=== PATIENT | female | born 1950 | race Caucasian/White ===

== ENCOUNTER 2018-04-25 08:55 | Outpatient (RCR) | payer MEDICARE, OTHER ==
[2016-09-09 13:06] VITALS: Wt 82.2 kg
[2018-04-14 09:21] VITALS: BP 152/77
[2018-04-14 10:31] LABS: PLATELET COUNT, AUTOMATED 286 K/uL (150-450)
--- NOTE | 2018-04-14 16:11 | [facility] ONCOLOGY NOTE ---
EVENT DATE: April 14, 2018 REFERRING PHYSICIAN Baljit Coronel MD and Ailyn Lee, REASON FOR CONSULTATION Evaluation and management of hereditary hemochromatosis. HEMATOLOGY HISTORY Patient is a 68-year-old female who was diagnosed with double heterozygous state for hereditary hemochromatosis. We do not have records of that, but the patient was knowing that, and she is going to bring a copy of her blood work which was done in the past. Patient did not have any phlebotomy for the last three years, and her recent ferritin was 242, and she was having a concern about the phlebotomy session. She is doing fine currently except having allergy with nasal discharge, epistaxis, and cough with expectoration. She has also some asthma. She has occasional constipation, and she has pain in her right shoulder due to bony spur. PAST MEDICAL HISTORY 1. Sleep apnea. 2. Hypertension. 3. Allergies. 4. Hereditary hemochromatosis. 5. GERD. PAST SURGICAL HISTORY 1. ORIF for right elbow fracture in June 2016. 2. Colon perforation surgery with ileostomy and reversal of ileostomy in 2015. 3. Bilateral tubal ligation in 1997. FAMILY HISTORY Possible familial polyposis on the paternal side of her family. SOCIAL HISTORY The patient is with one son. She is a musician, teacher, and commercial loan underwriter. She is a never smoker. She drinks socially. She has like a glass of wine twice per month. No IV use of illicit drugs. CURRENT MEDICATIONS 1. Pantoprazole 40 mg daily. 2. Osphena 60 mg daily. 3. Losartan 50 mg daily. 4. Amlodipine 5 mg daily. 5. Dulera 100 mcg/5 mcg two puffs daily. 6. Multivitamins. 7. Calcium supplement. 8. Metronidazole 60 g gel applied per vagina twice a week. ALLERGIES 1. BACTRIM which causes severe hives. 2. CEFTIN which causes C. diff. 3. PENICILLIN which causes skin allergy. 4. LEVAQUIN which causes hives. REVIEW OF SYSTEMS CONSTITUTIONAL: No appetite or weight change. No fever, chills, or sweating. No recent infection. HEENT: Ears: No tinnitus or hearing problem. Nose: She has nasal discharge and epistaxis due to allergies. Throat: No sore throat or mouth ulcers. Eyes: No diplopia or visual changes. RESPIRATORY: No shortness of breath. She has cough with expectoration from asthma. CARDIOVASCULAR: No chest pain, orthopnea, or paroxysmal nocturnal dyspnea (PND). No edema. No palpitations. GASTROINTESTINAL: No nausea or vomiting. She has occasional constipation. No change in bowel movements. No heartburn or swallowing difficulties. No abdominal pain. No jaundice. No hematemesis, melena, or rectal bleeding. GENITOURINARY: No hematuria or dysuria. MUSCULOSKELETAL: She has right shoulder pain from bone spur. NEUROLOGICAL: No tingling or numbness in the hands or feet. No headaches or convulsions. HEMATOLOGIC/LYMPHATIC: No bleeding or easy bruising. No weakness or fatigue. No enlarged lymph nodes. SKIN: No skin rash or lumps. PSYCHIATRIC: No anxiety or depression. PHYSICAL EXAMINATION GENERAL: Looks stable. Well developed, well nourished, and in no acute distress. VITAL SIGNS: Blood pressure 152/77, pulse 59 per minute, respirations 16 per minute, temperature 98.9, pulse ox 95% on room air. HEENT: Head: Atraumatic. No sinus tenderness to palpation. Eyes: No icterus or conjunctivitis. Mouth and throat: No oral thrush or mucositis. NECK: Supple. No cervical or supraclavicular lymphadenopathy. LUNGS: Clear to auscultation and percussion bilaterally. HEART: Regular rate and rhythm. No gallops, murmurs, clicks, or rubs. ABDOMEN: Soft and lax. No tenderness. No hepatosplenomegaly. No masses. EXTREMITIES: No cyanosis, clubbing, or edema. LYMPHATICS: No peripheral lymphadenopathy. NEUROLOGICAL: Conscious, alert, and oriented times three. No focal motor or sensory deficits. PSYCHIATRIC: Mood and affect appear normal. SKIN: No skin rash, bruise, or purpuric eruption. ASSESSMENT Hereditary hemochromatosis with double hit heterozygous state as per patient report, but no documentation. Patient has been on phlebotomy sessions before, but she did not have any phlebotomy for the last three years, and she has a concern for that as her last ferritin done recently was 242. I had a long discussion with the patient today regarding further management. I am planning to repeat her iron studies with ferritin. I am planning to check also her CBC and chem panel. I am planning to phlebotomize 500 mL of blood if ferritin is above 100 and/or iron saturation above 60%. I am planning to repeat the phlebotomy if her iron studies are higher. I explained that, and she is agreeable with plan of management. Patient is planning to move to [place] next month, so will try to get her phlebotomy sessions done here to decrease her iron overload. PLAN 1. CBC, chem panel, and iron studies with ferritin. 2. Phlebotomize 500 mL of blood if ferritin above 100 and/or iron saturation above 60%. 3. CBC and iron studies to be checked every 10 days and proceed with phlebotomy according to the above target. 4. Patient to contact us for any new concerns or complaints. CHARLEY
[2018-04-15 13:07] VITALS: BP 163/65
[2018-04-22 15:02] VITALS: BP 155/70
[2018-04-22 15:20] LABS: PLATELET COUNT, AUTOMATED 296 K/uL (150-450)
[~2018-04-25 08:55] MED LIST: ALB17R INH; ALB18R INH; ALLEGRA; ALLERGY SHOT; AMLO-111 PO; AMLO-113 PO; AZE137NAPT NS; AZEL23SP NS; CALC600T72 PO; CLA500 PO; CLIN300C99 PO; CLOB59LO4 TP; CYC10 PO; DOCU100T19 PO; DUL100/5PT INH; FEXO1TAB39 PO; FLUINH; HYDR-3078 PO; HYDR-317 PO; HYDR-385 PO; LANS30CA70 PO; LOR5 PO; LOSA100T69 PO; MET60GMPT VA; METR250 PO; MILK THISTLE140 MG PO; OND4 PO; ONDA4TAB97 PO; OSPE60TA2 PO; PAN40 PO; PRILOSEC; RISE35TA PO; SINGULAIR; [UNRECOGNIZED DRUG - OTHER] VA
[2018-04-25 10:41] VITALS: BP 154/98
[2018-04-25 10:42] VITALS: BP 148/71
== END 2018-06-15 09:06 | disposition home or self-care (01) ==
LOC: SPU 08:55
PROVIDERS: ATTEND Internal Medicine Hematology
DX: E83.110 Hereditary hemochromatosis (principal); J45.909 Unspecified asthma, uncomplicated; Z79.899 Other long term (current) drug therapy; R05 Cough
CPT/HCPCS: 36416; 82728; 82948; 83540; 83550; 85025; 99195; G0463; 82040; 82247; 82310; 82374; 82435; 82565; 82947; 84075; 84132; 84155; 84295; 84450; 84460; 84520; 99202